=== PATIENT | male | born 1970 | race Hispanic/Latino ===

== ENCOUNTER 2019-03-13 00:18 | Emergency (ER) | payer OTHER ==
[2019-03-13] MEDS ORDERED: LIDOCAINE 1%-EPI 1:100,000 20 ML VIAL IJ ONE (00:31)
[2019-03-13] MEDS ORDERED: SULFAMETHOX-TMP DS 800/160 TAB ONE (00:43)
[2019-03-13] MEDS ORDERED: HYDROCODONE/ACETAMINOPHEN 10/325 MG TAB ONE (00:55)
== END 2019-03-13 01:22 | disposition home or self-care (01) ==
LOC: EDH 00:18
DX: L02.412 Cutaneous abscess of left axilla (principal); I10 Essential (primary) hypertension
CPT/HCPCS: 10060; 99283; J3490

== ENCOUNTER 2019-03-14 14:48 | Inpatient (IN) | payer OTHER ==
[~2019-03-14] VITALS: Ht 175.3 cm; Wt 128.8 kg
[2019-03-14] MEDS ORDERED: SODIUM CHLORIDE 0.9% 1000ML 1,000 ML IV ONE ×2 (15:54→22:22)
[2019-03-14] MEDS ORDERED: SODIUM CHLORIDE 0.9% 50 ML IV ONE (15:54)
[2019-03-14] MEDS ORDERED: CEFTRIAXONE SODIUM 2 GM VIAL ONE (15:54)
[2019-03-14 16:10] LABS: EOSINOPHILS % (AUTO) 0.9 % (0.0-8.0); HEMATOCRIT 48.3 % (42-54); LYMPHOCYTES % (AUTO) 12.5 % (21.0-51.0); MEAN CORPUSCULAR HEMOGLOBIN 30.1 pg (27.0-33.0); MEAN CORPUSCULAR HGB CONC 34.3 g/dL (32.0-36.0); MEAN CORPUSCULAR VOLUME 87.8 fL (79-99); MONOCYTES % (AUTO) 9.6 % (3.0-13.0); PLATELET COUNT (AUTO) 285 K/uL (130-400); RED CELL DISTRIBUTION WIDTH 14.3 % (11.0-15.5); WHITE BLOOD COUNT (AUTO) 14.9 K/uL (4.8-10.8)
[2019-03-14 16:23] LABS: INR 0.97 (0.85-1.15); PARTIAL THROMBOPLASTIN TIME 30.1 SEC (26.3-35.5); PROTHROMBIN TIME 10.2 SEC (9.6-11.6)
[2019-03-14 16:27] LABS: CREATININE 1.2 mg/dL (0.5-1.5); POTASSIUM 3.1 mmol/L (3.5-5.1)
[2019-03-14 16:29] LABS: ALBUMIN 3.5 g/dL (3.5-5.0); BILIRUBIN,TOTAL 0.5 mg/dL (0.2-1.0); TOTAL PROTEIN, SERUM 8.3 g/dL (6.0-8.3)
[2019-03-14] MEDS ORDERED: MAGNESIUM OXIDE 400 MG TABLET PO ONE (17:19)
[2019-03-14] MEDS ORDERED: VANCOMYCIN 1GM+NS 250ML 250 ML IV ONE ×2 (17:20→17:27)
[2019-03-14] MEDS ORDERED: POTASSIUM CHLORIDE 20 MEQ ERTAB PO ONE (17:20)
[2019-03-14] MEDS: SODIUM CHLORIDE 0.9% 1000ML 1,000 ML IV SCH (21:46)
[2019-03-14] MEDS ORDERED: HYDRALAZINE HCL 20 MG/ML VIAL IV PRN (22:00)
[2019-03-14] MEDS ORDERED: VANCOMYCIN PROTOCOL PER PHARMACY IV PRN (22:00)
[2019-03-14] MEDS ORDERED: ACETAMINOPHEN-CODEINE 300/30MG TAB PO PRN (22:00)
[2019-03-14] MEDS ORDERED: POTASSIUM CHLORIDE 10% ELIXIR 20 MEQ/15 ML UDCUP PO PRN (22:30)
[2019-03-14] MEDS ORDERED: LIDOCAINE HCL-MPF 1% 2ML VIAL IV PRN (22:30)
[2019-03-14] MEDS ORDERED: POTASSIUM CHLORIDE 20 MEQ ERTAB PO PRN (22:30)
[2019-03-14] MEDS ORDERED: POTASSIUM CHLORIDE 20MEQ/100ML 100 ML IV PRN (22:30)
[2019-03-15] VITALS (7 sets, daily range): BP systolic 116–147; BP diastolic 74–91
[2019-03-15 05:38] LABS: BASOPHILS % (AUTO) 0.8 % (0.0-5.0); EOSINOPHILS % (AUTO) 1.5 % (0.0-8.0); HEMATOCRIT 41.8 % (42-54); LYMPHOCYTES % (AUTO) 15.9 % (21.0-51.0); MEAN CORPUSCULAR HEMOGLOBIN 29.9 pg (27.0-33.0); MEAN CORPUSCULAR HGB CONC 33.8 g/dL (32.0-36.0); MEAN CORPUSCULAR VOLUME 88.7 fL (79-99); MONOCYTES % (AUTO) 9.9 % (3.0-13.0); NEUTROPHILS % (AUTO) 71.9 % (40.0-77.0); PLATELET COUNT (AUTO) 248 K/uL (130-400); RED BLOOD CELL COUNT(AUTO) 4.71 MIL/uL (4.50-6.20); RED CELL DISTRIBUTION WIDTH 14.6 % (11.0-15.5); WHITE BLOOD COUNT (AUTO) 12.4 K/uL (4.8-10.8)
[2019-03-15 05:53] LABS: ALBUMIN 2.8 g/dL (3.5-5.0); BILIRUBIN,TOTAL 0.6 mg/dL (0.2-1.0); CREATININE 1.2 mg/dL (0.5-1.5); POTASSIUM 3.5 mmol/L (3.5-5.1)
[2019-03-15] MEDS ORDERED: COMPOUND IV REFRIGERATED 1 EACH IVSOLN MISC PRN (06:30)
[2019-03-15] MEDS: SODIUM CHLORIDE 0.9% 1000ML 1,000 ML IV SCH ×2 (07:46→17:46)
[2019-03-15] MEDS: FAMOTIDINE 20MG TAB 20 MG TAB PO SCH ×2 (10:24→21:19)
[2019-03-15] MEDS: ENOXAPARIN SODIUM 30 MG/0.3 ML SQ SCH (10:26)
[2019-03-15] MEDS: VANCOMYCIN 1.25 GM in SODIUM CHLORIDE 0.9% 250 ML IV SCH ×2 (10:26→21:20)
--- NOTE | 2019-03-15 12:16 | NUR ---
D/C PLAN CM spoke to pt regarding d/c planning. Pt is [place] and lives with spouse. [facility] spouse can assist in care if needed. Denies having any DME at home. [facility] spouse can perform dressing changes if needed. CM provided community resources packet. Plan to home. CM to f/u. Addendum: 03/15/19 at 1217 by JIM IRVIN CM Amended: Links added.
[2019-03-15] MEDS ORDERED: LISI1TAB32 PO (16:00)
[2019-03-15] MEDS ORDERED: METO25TA6 PO (16:00)
[2019-03-15] MEDS: ACETAMINOPHEN-CODEINE 300/30MG TAB PO PRN (21:19)
[2019-03-16 03:05] VITALS: BP 119/82
[2019-03-16] MEDS: SODIUM CHLORIDE 0.9% 1000ML 1,000 ML IV SCH ×2 (04:13→12:46)
[2019-03-16 06:43] LABS: BASOPHILS % (AUTO) 0.1 % (0.0-5.0); EOSINOPHILS % (AUTO) 2.8 % (0.0-8.0); HEMATOCRIT 43.8 % (42-54); LYMPHOCYTES % (AUTO) 13.7 % (21.0-51.0); MEAN CORPUSCULAR HEMOGLOBIN 30.2 pg (27.0-33.0); MEAN CORPUSCULAR HGB CONC 33.9 g/dL (32.0-36.0); MEAN CORPUSCULAR VOLUME 88.9 fL (79-99); MONOCYTES % (AUTO) 8.7 % (3.0-13.0); NEUTROPHILS % (AUTO) 74.7 % (40.0-77.0); PLATELET COUNT (AUTO) 297 K/uL (130-400); RED BLOOD CELL COUNT(AUTO) 4.92 MIL/uL (4.50-6.20); RED CELL DISTRIBUTION WIDTH 14.6 % (11.0-15.5); WHITE BLOOD COUNT (AUTO) 9.8 K/uL (4.8-10.8)
[2019-03-16 06:57] LABS: CREATININE 1.2 mg/dL (0.5-1.5); POTASSIUM 4.2 mmol/L (3.5-5.1)
[2019-03-16 07:30] VITALS: BP 138/78
--- NOTE | 2019-03-16 07:42 | NUR ---
PATIENT UPDATE Kept npo post mn as per Dr. Zaman's order, pending a procedure for this am. Patient showered, CHG bath done. Medicated once last night with [place] for the headache,no pain voiced on the left mid axillary incision area. Continues with the ivf of NS at 100 cc/hr, Vancomycin per pharmacy protocol. Dressing to the site dry and intact.
[2019-03-16] MEDS: FAMOTIDINE 20MG TAB 20 MG TAB PO SCH ×2 (09:51→21:18)
[2019-03-16] MEDS: VANCOMYCIN 1.25 GM in SODIUM CHLORIDE 0.9% 250 ML IV SCH (09:53)
[2019-03-16] MEDS: ENOXAPARIN SODIUM 30 MG/0.3 ML SQ SCH (09:53)
[2019-03-16 11:00] VITALS: BP 144/80
[2019-03-16] MEDS: VANCOMYCIN 1.5 GM in SODIUM CHLORIDE 0.9% 250 ML IV SCH (12:45)
[2019-03-16 16:00] VITALS: BP 125/76
[2019-03-16 19:15] VITALS: BP 132/81
[2019-03-16 23:00] VITALS: BP 124/94
[2019-03-17] MEDS: VANCOMYCIN 1.5 GM in SODIUM CHLORIDE 0.9% 250 ML IV SCH ×2 (00:32→12:20)
[2019-03-17] MEDS: ACETAMINOPHEN-CODEINE 300/30MG TAB PO PRN (00:38)
--- NOTE | 2019-03-17 02:13 | NUR ---
IV New Iv started to left upper arm per Cat Rn.Old iv to rt antecubital dcd,pt c/o if hurts,cath tip intact.
[2019-03-17 03:00] VITALS: BP_SYST 132; BP_DIAS 81; BP_DIAS 86
[2019-03-17 05:43] LABS: BASOPHILS % (AUTO) 1.1 % (0.0-5.0); EOSINOPHILS % (AUTO) 3.5 % (0.0-8.0); HEMATOCRIT 42.7 % (42-54); LYMPHOCYTES % (AUTO) 22.5 % (21.0-51.0); MEAN CORPUSCULAR HEMOGLOBIN 30.4 pg (27.0-33.0); MEAN CORPUSCULAR VOLUME 89.4 fL (79-99); MONOCYTES % (AUTO) 7.5 % (3.0-13.0); NEUTROPHILS % (AUTO) 65.4 % (40.0-77.0); PLATELET COUNT (AUTO) 285 K/uL (130-400); RED BLOOD CELL COUNT(AUTO) 4.78 MIL/uL (4.50-6.20); RED CELL DISTRIBUTION WIDTH 14.5 % (11.0-15.5); WHITE BLOOD COUNT (AUTO) 9.4 K/uL (4.8-10.8)
[2019-03-17 07:30] VITALS: BP 126/79
[2019-03-17] MEDS: FAMOTIDINE 20MG TAB 20 MG TAB PO SCH (09:11)
[2019-03-17] MEDS: ENOXAPARIN SODIUM 30 MG/0.3 ML SQ SCH (09:12)
[2019-03-17 11:00] VITALS: BP 120/78
--- NOTE | 2019-03-17 15:31 | NUR ---
[facility] CONSULT PATIENT ASSESSED REQUESTED: PATIENT PRESENTS WITH ABSCESS TO LEFT AXILLA; [facility] RECOMMENDATIONS SUBMITTED. Addendum: 03/17/19 at 1532 by DIANA MALONEY LVN LVN W Amended: Links added.
[2019-03-17 16:00] VITALS: BP 141/89
--- NOTE | 2019-03-17 19:18 | NUR ---
Discharge teaching completed at bedside with pt and . Emphasis on dx, s/s to monitor for, including when to seek emergency care vs dial 911. Emphasis on wound care instructions for left axilla abscess as ordered by wound care clinic. Written rx for cephalexin given to pt. Discussed purpose, route, frequency, and duration of treatment, as well as side effects and adverse effects. Encouraged to complete entire course of antibiotics. Pt understands he must call for follow up appts with PCP, Dr. Zaman, and Dr. Gould tomorrow - to be seen in 3 days, 1 week, and 1 week, respectively. PIV removed, tip intact. Dressed with sterile 2x2 and tape after hemostasis. [facility] [place] [facility] [place] via private car. Accompanied by . Pt in stable condition at time of discharge.
== END 2019-03-17 19:05 | disposition home or self-care (01) | DRG 872 ==
LOC: EDH 14:48 → EDHIP 14:49 → 3CH 23:30
PROVIDERS: ADMIT Internal Medicine; ATTEND Internal Medicine
DX: A41.9 Sepsis, unspecified organism (principal); L03.112 Cellulitis of left axilla; L02.412 Cutaneous abscess of left axilla; Z68.41 Body mass index [BMI] 40.0-44.9, adult; E87.6 Hypokalemia; E66.01 Morbid (severe) obesity due to excess calories; I10 Essential (primary) hypertension; B95.61 Methicillin susceptible Staphylococcus aureus infection as the cause of diseases classified elsewhere; L53.9 Erythematous condition, unspecified; Z88.0 Allergy status to penicillin
CPT/HCPCS: 36415; 71045; 80048; 80053; 80202; 82948; 83605; 84145; 85025; 85610; 85730; 87040; 87070; 87076; 87077; 87186; 93005; G0378; J0696; J1650; J3370; J7030

== ENCOUNTER 2019-06-15 20:24 | Emergency (ER) | payer MEDICAID, OTHER ==
[~2019-06-15 20:24] MED LIST: LISI1TAB32 PO; METO25TA6 PO
== END 2019-06-15 21:25 | disposition home or self-care (01) ==
LOC: EDH 20:24
DX: I10 Essential (primary) hypertension (principal); Z87.891 Personal history of nicotine dependence; Z88.0 Allergy status to penicillin
CPT/HCPCS: 93005